=== PATIENT | female | born 1985 | race Caucasian/White ===

== ENCOUNTER 2017-05-12 06:33 | Emergency (ER) | payer BC, OTHER ==
[~2017-05-12] VITALS: Ht 175.3 cm; Wt 83.9 kg
[~2017-05-12 06:33] MED LIST: COLC0.6T34 PO; IBUP200T43 PO; MEDR150D3 IM; PANT20TA58 PO; TOPI100T42 PO
[2017-05-12 07:01] VITALS: BP 128/66
[2017-05-12] MEDS ORDERED: IBUPROFEN 600 MG TABLET. PO ONE (07:15)
--- NOTE | 2017-05-12 10:54 | ED.ADGEN ---
Past History Past Medical History: No Pertinent History Past Surgical History: Appendectomy, Other Alcohol Use: None Drug Use: None Adult General Chief Complaint Chief Complaint Bee sting HPI HPI Patient is a 31-year-old female with previous bee sting who allergy presents with bee stings to the left foot and left ankle sustained 30 minutes prior to ED arrival. Patient localized tenderness pain. No urticaria oral pharyngeal swelling, shortness of breath or wheezing. Review of Systems Review of Systems ROS as per HPI. Current Medications Current Medications Current Medications Medications (Trade) Dose Ordered Sig/Thomas Start Time Stop Time Status Last Admin Dose Admin Ibuprofen (Motrin) 600 mg 1X ONCE 05/12/17 07:15 05/12/17 07:16 DC 05/12/17 07:10 600 MG Allergies Allergies Allergies Coded Allergies Type Severity Reaction Last Updated Verified No Known Drug Allergies 05/19/15 No Physical Exam Physical Exam Constitutional: Well developed, well nourished, no acute distress, non-toxic appearance. HENT: Normocephalic, atraumatic, bilateral external ears normal, oropharynx moist, no oral exudates, nose normal. Eyes: PERRLA, EOMI, conjunctiva normal. Neck: Normal range of motion, no tenderness. Cardiovascular:Heart rate regular rhythm, no murmur. Lungs & Thorax: Bilateral breath sounds clear to auscultation. Skin: Warm, dry, no erythema, no rash. Extremities: No tenderness, no cyanosis, no clubbing, ROM intact, no edema. Neurologic: Alert and oriented X 3, normal motor function, normal sensory function, no focal deficits noted. Psychologic: Affect normal, judgement normal, mood normal. Current Patient Data Vital Signs Vital Signs Date Time Temp Pulse Resp B/P (MAP) Pulse Ox O2 Delivery O2 Flow Rate FiO2 05/12/17 07:35 77 18 99 Room Air 05/12/17 07:01 98.7 EKG EKG [] Radiology/Procedures Radiology/Procedures [] Course & Med Decision Making Course & Med Decision Making Pertinent Labs and Imaging studies reviewed. (See chart for details) [] Final Impression Final Impression [] Problems: Dragon Disclaimer Dragon Disclaimer This electronic medical record was generated, in whole or in part, using a voice recognition dictation system. BILLY LATIF DO May 12, 2017 10:54
== END 2017-05-12 07:35 | disposition home or self-care (01) ==
LOC: ER 06:33
DX: T63.441A Toxic effect of venom of bees, accidental (unintentional), initial encounter (principal); M79.672 Pain in left foot; Y92.89 Other specified places as the place of occurrence of the external cause
CPT/HCPCS: 99282

== ENCOUNTER 2017-11-08 10:46 | Emergency (ER) | payer BC ==
[~2017-11-08] VITALS: Ht 175.3 cm; Wt 92.5 kg
[~2017-11-08 10:46] MED LIST changes: -IBUP200T43 PO; +IBUP200T44 PO
[2017-11-08 11:00] VITALS: BP 127/77
--- NOTE | 2017-11-08 11:04 | PHYS DOC ---
Past History Past Medical History: No Pertinent History Additional Past Medical Histor: IBS, migraine Past Surgical History: Appendectomy, Other Smoking: Non-smoker Alcohol Use: None Drug Use: None Adult General Chief Complaint Chief Complaint: cough and nausea and vomiting [facility] 32-year-old female patient complaining of sudden onset of dry cough and nasal congestion and triage and headache since yesterday with nausea and one episode of vomiting. Patient was seen by her primary care physician yesterday and treated for otitis media with Augmentin without improvement of her condition. Patient complaining of subjective fever since this morning with worsening her symptoms. Patient had temperature of 100.5 at arrival to ER. She denies sick contacts, , urinary symptoms, neck pain. Review of Systems Review of Systems Constitutional: Reports fever and chills Eyes: Denies change in visual acuity, redness, or eye pain [] HENT: Reports nasal congestion Respiratory: Post dry,] Cardiovascular: No additional information not addressed in HPI [] GI: Denies abdominal pain, bloody stools or diarrhea , reports nausea and vomiting[] : Denies dysuria or hematuria [] Musculoskeletal: Denies back pain or joint pain, reports medial she [] Integument: Denies rash or skin lesions [] Neurologic: Denies, focal weakness or sensory changes, reports headache [] Endocrine: Denies polyuria or polydipsia [] All other systems were reviewed and found to be within normal limits, except as documented in this note. Allergies Allergies Allergies Coded Allergies Type Severity Reaction Last Updated Verified No Known Drug Allergies 05/19/15 No Physical Exam Physical Exam Constitutional: Well developed, mild distress, non-toxic appearance. [] HENT: Normocephalic, atraumatic, bilateral external ears normal, oropharynx moist, no oral exudates, nose normal. [] Eyes: PERRLA, EOMI, conjunctiva normal, no discharge. [] Neck: Normal range of motion, no tenderness, supple, no stridor. [] Cardiovascular: Tachycardia, no murmur [] Lungs & Thorax: Bilateral breath sounds clear to auscultation [] Abdomen: Bowel sounds normal, soft, no tenderness, no masses, no pulsatile masses. [] Skin: Warm, dry, no erythema, no rash. [] Back: No tenderness, no CVA tenderness. [] Extremities: No tenderness, no cyanosis, no clubbing, ROM intact, no edema. [] Neurologic: Alert and oriented appropriate for age EKG EKG [] Radiology/Procedures Radiology/Procedures [] Course & Med Decision Making Course & Med Decision Making Pertinent Labs reviewed. (See chart for details) Evaluation of patient in ER showed 32-year-old female patient with fever and cough and congestion and vomiting since yesterday. Patient had temperature of 100.5 at arrival to ER. Patient had positive influenza A test. Patient treated with Tylenol and [place] and felt better. Patient instructed to stop taking Augmentin that given by primary care physician yesterday. Plan to discharge patient home with diagnosis of influenza and prescription of Tamiflu and Tussionex. Dragon Disclaimer Dragon Disclaimer This electronic medical record was generated, in whole or in part, using a voice recognition dictation system. Departure Departure: Impression: Primary Impression: Influenza A Additional Impressions: Fever Headache Disposition: HOME, SELF-CARE (at 1257) Condition: IMPROVED Referrals: Otilio SOTO (PCP) Patient Instructions: Fever, Adult, Influenza A (H1N1) Additional Instructions: Drink plenty of liquids Stop taking Augmentin Take Tylenol for fever and pain Follow-up with your primary care physician in 3-5 days Return to ER if not feeling better Scripts Hydrocodone/Chlorphen P-Stirex (Tussionex Pennkinetic Susp) 115 Ml Amy.er.12h 5 ML PO BID, #120 ML Prov: KORI KUMAR MD 11/08/17 Oseltamivir Phosphate (TAMIFLU) 75 Mg Capsule 1 CAP PO BID, #10 CAP Prov: KORI KUMAR MD 11/08/17 Problem Qualifiers KORI KUMAR MD Nov 08, 2017 11:04
[2017-11-08] MEDS ORDERED: HYDROcodone/APAP 5/325MG 1 TAB TABLET PO ONE (11:30)
[2017-11-08] MEDS ORDERED: ACETAMINOPHEN 325 MG TABLET PO ONE (11:30)
[2017-11-08 11:46] LABS: INFLUENZA A PATIENT POSITIVE (NEGATIVE); INFLUENZA B PATIENT NEGATIVE (NEGATIVE)
[2017-11-08] MEDS ORDERED: HYDR115S2 PO (11:59)
[2017-11-08] MEDS ORDERED: OSEL75CA PO (11:59)
== END 2017-11-08 12:07 | disposition home or self-care (01) ==
LOC: ER 10:46
DX: J09.X2 Influenza due to identified novel influenza A virus with other respiratory manifestations (principal); R51 Headache; K58.9 Irritable bowel syndrome, unspecified; G43.909 Migraine, unspecified, not intractable, without status migrainosus
CPT/HCPCS: 87804; 99284

== ENCOUNTER 2018-09-15 21:22 | Emergency (ER) | payer BC ==
[~2018-09-15] VITALS: Ht 172.7 cm; Wt 102.1 kg
[~2018-09-15 21:22] MED LIST changes: +HYDR115S2 PO; +OSEL75CA PO
[2018-09-15] MEDS ORDERED: MORPHINE SULFATE 10 MG/ML SYRINGE. IM ONE (22:00)
[2018-09-15 22:08] VITALS: BP 127/81
[2018-09-15] MEDS ORDERED: HYDR-3165 PO (22:23)
--- NOTE | 2018-09-15 22:23 | PHYS DOC ---
Past History Past Medical History: Depression, IBS, Migraines Additional Past Medical Histor: IBS, migraine Past Surgical History: Appendectomy, Hysterectomy, Knee Replacement Smoking: Non-smoker Alcohol Use: Occasionally Drug Use: None Adult General Chief Complaint Chief Complaint: TOE PROBLEM HPI HPI Patient is a 32 year old female who presents with complaint of left fifth toe pain. Patient states that she injured her toe at home shortly prior to arrival. Patient states that she was running from the bedroom to the bathroom when her left foot accidentally hit the corner of the wall. Patient states she heard a pop and started having severe pain to the left fifth toe. She states that the toe is pointing sideways. She is unable to move the toe secondary to pain. Denies any other injuries. Review of Systems Review of Systems Constitutional: Denies fever or chills [] Eyes: Denies change in visual acuity, redness, or eye pain [] HENT: Denies nasal congestion or sore throat [] Respiratory: Denies cough or shortness of breath [] Cardiovascular: Denies chest pain or edema[] GI: Denies abdominal pain, nausea, vomiting, bloody stools or diarrhea [] : Denies dysuria or hematuria [] Musculoskeletal: Left fifth toe injury[] Integument: Denies rash or skin lesions [] Neurologic: Denies headache, focal weakness or sensory changes [] All other systems were reviewed and found to be within normal limits, except as documented in this note. Current Medications Current Medications Current Medications Medications (Trade) Dose Ordered Sig/Thomas Start Time Stop Time Status Last Admin Dose Admin Morphine Sulfate (Morphine 10mg Syringe) 5 mg 1X ONCE 09/15/18 22:00 09/15/18 22:01 DC 09/15/18 22:02 5 MG Allergies Allergies Allergies Coded Allergies Type Severity Reaction Last Updated Verified No Known Drug Allergies 05/19/15 No Physical Exam Physical Exam Constitutional: Well developed, well nourished, appears in moderate discomfort. [] HENT: Normocephalic, atraumatic, bilateral external ears normal, oropharynx moist, no oral exudates, nose normal. [] Eyes: PERRLA, EOMI, conjunctiva normal, no discharge. [] Neck: Normal range of motion, no tenderness, supple, no stridor. [] Cardiovascular:Heart rate regular rhythm, no murmur [] Lungs & Thorax: Bilateral breath sounds clear to auscultation [] Abdomen: Bowel sounds normal, soft, no tenderness, no masses, no pulsatile masses. [] Skin: Warm, dry, no erythema, no rash. [] Back: No tenderness, no CVA tenderness. [] Extremities: Left fifth digit of foot laterally angulated at 45 from midportion of proximal phalanx, no cyanosis, no clubbing, no edema. [] Neurologic: Alert and oriented X 3, normal motor function, normal sensory function, no focal deficits noted. [] Current Patient Data Vital Signs Vital Signs Date Time Temp Pulse Resp B/P (MAP) Pulse Ox O2 Delivery O2 Flow Rate FiO2 09/15/18 22:02 91 16 125/74 (91 94 Room Air 09/15/18 21:35 98.3 Lab Results Not performed EKG EKG Not performed[] Radiology/Procedures Radiology/Procedures [address] [address] IMAGING REPORT Signed PATIENT: BRIEN TRAMMELL ACCOUNT: [id number] : 1985 LOCATION: ER AGE: 32 SEX: F EXAM STATUS: REG ER ORD. PHYSICIAN: LU LEUNG MD REASON: Injury tonight with left 5th toe deformity, pain PROCEDURE: FOOT LEFT 3V Three-view left foot dated 09/15/2018. No comparison available. CLINICAL INDICATION: Pain. Fifth toe deformity. FINDINGS: 3 views left foot show an oblique fracture through the fifth proximal phalanx with moderate lateral angulation at the fracture site. No additional fractures are seen. IMPRESSION: Angulated fracture at the fifth proximal phalanx. Electronically signed by: Paul Wagoner MD (09/15/2018 10:25 PM) [facility] DICTATED AND SIGNED BY: PAUL WAGONER MD DATE: 09/15/18 2223 CC: LU LEUNG MD; Otilio SOTO ~ [] Course & Med Decision Making Course & Med Decision Making Pertinent Labs and Imaging studies reviewed. (See chart for details) Patient was treated with 5 mg of IM morphine for pain. The patient's toe was reduced and immobilized with chidi taping to the fourth digit. Patient placed in an orthopedic open toed shoe. Prescribed [place] for continued treatment of pain. Referred to Dr. Andrew of podiatry for follow-up in the next 5 days for reevaluation. Advised return to emergency department for any worsening symptoms. Patient was understanding and in agreement with treatment plan. Dragon Disclaimer Dragon Disclaimer This electronic medical record was generated, in whole or in part, using a voice recognition dictation system. Departure Departure: Impression: Primary Impression: Toe fracture, left Disposition: HOME, SELF-CARE Condition: IMPROVED Referrals: Otilio SOTO (PCP) Patient Instructions: Toe Fracture Additional Instructions: Call the office of Dr. Bunny Andrew at to schedule an appointment in the next 5 days. Office address is [address] [place] [address]. Return to the emergency department for any worsening symptoms. Scripts Hydrocodone Bit/Acetaminophen (NORCO 5-325 TABLET) 1 Each Tablet 1-2 TAB PO Q4-6HRS PRN for PAIN, #20 TAB Prov: LU LEUNG MD 09/15/18 Problem Qualifiers Primary Impression: Toe fracture, left Encounter type: initial encounter Toe: lesser toe Fracture type: closed Phalanx: proximal Fracture alignment: displaced Qualified Codes: S92.512A - Displaced fracture of proximal phalanx of left lesser toe(s), initial encounter for closed fracture LU LEUNG MD Sep 15, 2018 22:23
--- NOTE | 2018-09-15 22:29 | RAD ---
Three-view left foot dated 09/15/2018. No comparison available. CLINICAL INDICATION: Pain. Fifth toe deformity. FINDINGS: 3 views left foot show an oblique fracture through the fifth proximal phalanx with moderate lateral angulation at the fracture site. No additional fractures are seen. IMPRESSION: Angulated fracture at the fifth proximal phalanx. Electronically signed by: Paul Wagoner MD (09/15/2018 10:25 PM) [facility]
== END 2018-09-15 22:28 | disposition home or self-care (01) ==
LOC: ER 21:22
DX: S92.512A Displaced fracture of proximal phalanx of left lesser toe(s), initial encounter for closed fracture (principal); F32.9 Major depressive disorder, single episode, unspecified; G43.909 Migraine, unspecified, not intractable, without status migrainosus; K58.9 Irritable bowel syndrome, unspecified; W22.01XA Walked into wall, initial encounter; Y93.02 Activity, running; Y92.098 Other place in other non-institutional residence as the place of occurrence of the external cause; Y99.8 Other external cause status
CPT/HCPCS: 28515; 73630; 99284; J2270; 2815; 96372

== ENCOUNTER 2020-05-20 16:30 | Emergency (ER) | payer BC, OTHER ==
[~2020-05-20] VITALS: Ht 172.7 cm; Wt 103.2 kg
[~2020-05-20 16:30] MED LIST changes: +HYDR-3165 PO
[2020-05-20 16:40] VITALS: BP 138/87
[2020-05-20] MEDS ORDERED: DEXAMETHASONE 4 MG TABLET PO ONE (16:45)
--- NOTE | 2020-05-20 17:10 | RAD ---
Exam: Chest one view INDICATION: Cough TECHNIQUE: Frontal view of the chest Comparisons: None FINDINGS: The cardiomediastinal silhouette and pulmonary vessels are within normal limits. The lung and pleural spaces are clear. IMPRESSION: No acute cardiopulmonary process. Electronically signed by: Silvia Gonzalez MD (05/20/2020 5:07 PM) [id number]
[2020-05-20] MEDS ORDERED: BENZ100C PO (17:21)
--- NOTE | 2020-05-20 17:22 | PHYS DOC ---
Past History Past Medical History: Depression, IBS, Migraines Additional Past Medical Histor: IBS, migraine Past Surgical History: Appendectomy, Hysterectomy, Knee Replacement Smoking: Non-smoker Alcohol Use: Occasionally Drug Use: None General Adult EDM: Chief Complaint: COUGH HPI: HPI: Patient is a [age] year old [sex] who presents with [] Review of Systems: Review of Systems: Constitutional: Denies fever or chills Eyes: Denies change in visual acuity HENT: Denies nasal congestion or sore throat Respiratory: Denies cough or shortness of breath Cardiovascular: Denies chest pain or edema GI: Denies abdominal pain, nausea, vomiting, bloody stools or diarrhea : Denies dysuria Musculoskeletal: Denies back pain or joint pain Integument: Denies rash Neurologic: Denies headache, focal weakness or sensory changes Endocrine: Denies polyuria or polydipsia Lymphatic: Denies swollen glands Psychiatric: Denies depression or anxiety Heart Score: Risk Factors: Risk Factors: DM, Current or recent (<one month) smoker, HTN, HLP, family history of CAD, obesity. Risk Scores: Score 0 - 3: 2.5% MACE over next 6 weeks - Discharge Home Score 4 - 6: 20.3% MACE over next 6 weeks - Admit for Clinical Observation Score 7 - 10: 72.7% MACE over next 6 weeks - Early Invasive Strategies Current Medications: Current Meds: Current Medications Medications (Trade) Dose Ordered Sig/Thomas Start Time Stop Time Status Last Admin Dose Admin Dexamethasone (Decadron) 10 mg 1X ONCE 05/20/20 16:45 05/20/20 16:46 DC Allergies: Allergies: Allergies Coded Allergies Type Severity Reaction Last Updated Verified No Known Drug Allergies 05/19/15 No Physical Exam: PE: Constitutional: Well developed, well nourished, no acute distress, non-toxic appearance. [] HENT: Normocephalic, atraumatic, bilateral external ears normal, oropharynx moist, no oral exudates, nose normal. [] Eyes: PERRLA, EOMI, conjunctiva normal, no discharge. [] Neck: Normal range of motion, no tenderness, supple, no stridor. [] Cardiovascular:Heart rate regular rhythm, no murmur [] Lungs & Thorax: Bilateral breath sounds clear to auscultation [] Abdomen: Bowel sounds normal, soft, no tenderness, no masses, no pulsatile masses. [] Skin: Warm, dry, no erythema, no rash. [] Back: No tenderness, no CVA tenderness. [] Extremities: No tenderness, no cyanosis, no clubbing, ROM intact, no edema. [] Neurologic: Alert and oriented X 3, normal motor function, normal sensory function, no focal deficits noted. [] Psychologic: Affect normal, judgement normal, mood normal. [] EKG: EKG: [] Radiology/Procedures: Radiology/Procedures: [] Course & Med Decision Making: Course & Med Decision Making Pertinent Labs and Imaging studies reviewed. (See chart for details) [] Dragon Disclaimer: Dragon Disclaimer: This electronic medical record was generated, in whole or in part, using a voice recognition dictation system. Departure Departure: Impression: Primary Impression: Viral syndrome Additional Impression: Suspected 2019 novel coronavirus infection Disposition: HOME/RESIDENCE PRIOR TO ADM Condition: STABLE Referrals: RUPERTO SOTO MD (PCP) Patient Instructions: Incentive Spirometer, Viral Syndrome Additional Instructions: You have been tested for or diagnosed with COVID-19. It is an infection caused by a new type of coronavirus. COVID-19 will cause cold-like or mild flu symptoms in most. It can cause more severe symptoms like problems breathing in some. There is no treatment for COVID-19. The body will clear the infection over time. Self-care will help to ease discomfort. Steps to Take: Self-Care Rest as needed. Healthy habits may help you feel better. Steps include: Choose healthy foods including fruits and vegetables. Drink water throughout the day. Get plenty of sleep each night. If you smoke, try to quit. It may ease breathing. Avoid alcohol. Keep Others Healthy The virus can spread to others. Droplets are released every time you sneeze or cough. The droplets can get into the mouth, nose, or eyes of people near you and lead to infection. To lower the chances of spreading COVID-19 to others: Stay at home until your doctor has said it is safe to leave. If you tested positive this will mean staying isolated until both of the following are true: At least 7 days have passed since the start of illness. You are free of fever for at least 72 hours without the use of medicine. During this time: - Avoid public areas, events, or transportation. Do not return to work or school until your doctor has said it is safe to do so. - Call ahead if you need to go to a medical center. Let them know you may have COVID-19. It will help them guide you where to go. They may also ask you to wear a facemask when you come to the office. - If you call for emergency medical services, let them know you may have COVID- 19. While at home: - Try to avoid close contact with others. Stay about 6 feet away. - If possible, spend most of your time in a separate room from others. - Use a face mask if you will be in close contact with others such as sharing a room or vehicle. - Have someone wipe down common surfaces in the home. Use household operater every day on areas like doorknobs, counters, or sinks. - Cough or sneeze into a tissue. Throw the tissue away right after use. If a tissue is not available, cough or sneeze into your elbow. - Wash your hands often. Wash them after sneezing or coughing. Use soap and water and wash for at least 20 seconds. Alcohol based hand machine fur cleaner can be used if soap and w ater is not available. - Do not prepare food for others. Avoid sharing personal items like forks, spoons, or toothbrushes. - Avoid close contact with pets while you are sick. There is no evidence of the virus passing to pets. This is a safety step until more is known about this virus. Isolation can be frustrating. Social interaction can help. Keep in touch with friends and family through phone and tech options. You can still interact with others in your home, just keep a safe distance of about 6 feet. Follow-up: Your doctors office will check in with you to see if there are any changes in your health. You may be asked to keep track of symptoms to share with them. They will also let you know when you are clear to be in public again. Problems to Look Out For: Contact your doctor if your recovery is not going as you expect. Get emergency care if you have problems such as: - Trouble breathing - Nonstop chest pain or pressure - Changes in awareness, confusion, or problems waking - Lips or face have bluish color - Worsening of symptoms If you think you have an emergency, call for emergency medical services right away. As taken from [facility] [place] [facility] Scripts Benzonatate (TESSALON PERLE) 100 Mg Capsule 1 CAP PO TID PRN for COUGH, #30 CAP Prov: CHRIS HSU DO 05/20/20 Justification of Admission: Justification of Admission: Justification of Admission Dx: N/A CHRIS HSU DO May 20, 2020 17:22
--- NOTE | 2020-05-24 10:05 | NUR ---
IP: patient informed of COVID result.
== END 2020-05-20 17:30 | disposition home or self-care (01) ==
LOC: ER 16:30
DX: B34.9 Viral infection, unspecified (principal); Z20.828 Contact with and (suspected) exposure to other viral communicable diseases; K58.9 Irritable bowel syndrome, unspecified; G43.909 Migraine, unspecified, not intractable, without status migrainosus
CPT/HCPCS: 36415; 71045; 99284; J8540; U0003; 99285